=== PATIENT | female | born 1965 | race Caucasian/White ===

== ENCOUNTER 2018-11-05 14:08 | Emergency (ER) | payer OTHER ==
[2018-11-05] MEDS ORDERED: HYDROCODONE/APAP 5/325 MG TAB ONE ×2 (15:21→15:22)
[2018-11-05] MEDS ORDERED: ACETAMINOPHEN 325 MG TABLET ONE (15:21)
[2018-11-05 15:43] LABS: Absolute Lymphocytes (CBC) 0.5 K/uL (0.7-4.9); Absolute Monocytes 0.3 K/uL (0.1-1.3); Absolute Neutrophil 2.2 K/uL (1.8-8.0); Basophils % 0.4 % (0-1.3); Eosinophils % 0.7 % (0-4.4); Hematocrit 33.9 % (36.0-45.0); Lymphocytes % 18.2 % (15.3-44.8); MPV 7.5 fL (7.6-11.3); Monocytes % 8.6 % (3.3-12.3); RBC Red Blood Cell Count 3.58 M/uL (3.86-4.86)
[2018-11-05 15:56] LABS: Potassium 3.6 mmol/L (3.5-5.1)
--- NOTE | 2018-11-05 16:07 | ER ---
Nurse's Notes [facility] Name: Felicitas Caicedo Age: 53 yrs Sex: Female : 1965 Arrival Date: 11/05/2018 Time: 14:12 Bed 8 Private MD: Diagnosis: Fever, unspecified Presentation: 11/05 14:17 Presenting complaint: Right ear pain, sore throat, headache, fever, sinus congestion, hb sneezing, nonproductive cough x 2 days. TMAX 100.6. Transition of care: patient was not received from another setting of care. Onset of symptoms was November 04, 2018. Risk Assessment: Do you want to hurt yourself or someone else? Patient reports no desire to harm self or others. Care prior to arrival: None. 14:17 Method Of Arrival: Ambulatory hb 14:17 Acuity: REI 3 hb 14:45 Initial Sepsis Screen: Does the patient meet any 2 criteria? Temp <36.0*C (96.8*F)) or aa5 > 38.3*C (100.9*F). No. Patient's initial sepsis screen is negative. Does the patient have a suspected source of infection? Yes: Other: cough. Historical: - Allergies: 14:20 Fentanyl (Vomiting); hb - PMHx: 14:20 Multiple Myeloma; hb - Immunization history:: Adult Immunizations up to date. - Social history:: Smoking status: Patient/guardian denies using tobacco. - Ebola Screening: : No symptoms or risks identified at this time. Screenin:08 Abuse screen: Denies threats or abuse. Nutritional screening: No deficits noted. aa5 Tuberculosis screening: No symptoms or risk factors identified. Fall Risk None identified. Assessment: 14:45 General: Appears uncomfortable, Behavior is calm, cooperative. Pain: Complains of pain aa5 in right ear and forehead Pain does not radiate. Pain currently is 3 out of 10 on a pain scale. Quality of pain is described as aching, pressure, Pain began 1 day ago. Is continuous. Neuro: Level of Consciousness is awake, alert, obeys commands, Oriented to person, place, time, situation. Cardiovascular: Heart tones S1 S2 present Rhythm is regular. Respiratory: Reports cough that is non-productive, Airway is patent Respiratory effort is even, unlabored, Respiratory pattern is regular, symmetrical, Breath sounds are clear bilaterally. GI: No signs and/or symptoms were reported involving the gastrointestinal system. : No signs and/or symptoms were reported regarding the genitourinary system. EENT: Throat is reddened Reports nasal congestion pain in throat and right ear. Derm: Skin is dry, Skin is normal, Skin temperature is hot. Musculoskeletal: Range of motion: intact in all extremities. 15:36 Reassessment: Patient is alert, oriented x 3, equal unlabored respirations, skin aa5 warm/dry/pink. Pt given cup of water. Pt notified of wait time for lab and x-ray results. Pt's significant other at bedside. . 16:18 Reassessment: Patient is alert, oriented x 3, equal unlabored respirations, skin aa5 warm/dry/pink. 16:45 Reassessment: Patient is alert, oriented x 3, equal unlabored respirations, skin aa5 warm/dry/pink. Patient states feeling better. Vital Signs: 14:18 BP 116 / 63; Pulse 76; Resp 16; Temp 101.5(TE); Pulse Ox 98% on R/A; Pain 3/10; hb 16:18 BP 113 / 61; Pulse 60; Resp 18 S; Temp 99.3(O); Pulse Ox 97% on R/A; Pain 2/10; aa5 ED Course: 14:12 Patient arrived in ED. mr 14:18 Triage completed. hb 14:19 Arm band placed on. hb 14:26 Chelsea Bernard, RN is Primary Nurse. aa5 14:41 Mendy Terry FNP-C is PHCP. snw 14:41 Alcon Biggs MD is Attending Physician. snw 14:45 Patient has correct armband on for positive identification. Placed in gown. Bed in low aa5 position. Call light in reach. Side rails up X 1. Pulse ox on. NIBP on. 15:12 X-ray completed. Portable x-ray completed in exam room. Patient tolerated procedure tm4 well. 15:14 Chest Single View XRAY In Process Unspecified. EDMS 15:15 Flu and/or RSV swab sent to lab. Strep swab sent to lab. aa5 15:29 Initial lab(s) drawn, by me, sent to lab. First set of blood cultures drawn. jl7 15:33 Accessed Port-a-Cath. using accessed w/ # 20 Oscar needle, ,sterile technique, per [facility] protocol. Clean \T\ dry. Dressing intact. Good blood return. Flushes easily. 16:38 No provider procedures requiring assistance completed. Port-a-cath dc'd, flushed with aa5 heparin per protocol. Band-aid applied to site. Administered Medications: 15:12 Drug: Polk 5 mg-325 mg 2 tabs Route: PO; aa5 15:12 Drug: Tylenol 325 mg Route: PO; aa5 16:18 Drug: LevaQUIN 500 mg Route: PO; aa5 16:18 Drug: Tamiflu 75 mg Route: PO; aa5 Outcome: 16:07 Discharge ordered by . snw 16:45 Discharged to home ambulatory, with significant other. aa5 16:45 Condition: improved 16:45 Discharge instructions given to patient, Instructed on discharge instructions, follow up and referral plans. medication usage, Demonstrated understanding of instructions, follow-up care, medications, Prescriptions given X 1, Pt was instructed by HISTORIC PRESERVATIONIST to take Levaquin prescribed by her doctor for 7 days. 16:57 Patient left the ED. iw Signatures: Dispatcher [employer] EDMS Mendy Terry, DEBBIEC LEAD LEVEL DESIGNER-Csnashley Viviana Bernal Tracy tm4 Viv Curiel, SEAN ESTRADA iw Chelsea Bernard RN RN aa5 Fozia Cerna RN RN Shey Taylor RN RN jl7 Corrections: (The following items were deleted from the chart) 17:30 16:18 Pulse 60bpm; Resp 18bpm; Spontaneous; Pulse Ox 97% RA; Temp 99.3F Oral; aa5 aa5
--- NOTE | 2018-11-05 16:08 | EDPHYS ---
Physician Documentation [facility] Name: Felicitas Caicedo Age: 53 yrs Sex: Female : 1965 Arrival Date: 11/05/2018 Time: 14:12 Bed 8 Private MD: ED Physician Alcon Biggs HPI: 11/05 15:20 This 53 yrs old Female presents to ER via Ambulatory with complaints of snw Fever, Sore Throat, Ear Pain. 15:20 The patient reports fever, that was measured at 101.5 degrees Fahrenheit. Onset: The snw symptoms/episode began/occurred suddenly, last night. Modifying factors: there are no obvious modifying factors. Associated signs and symptoms: Pertinent positives: earache, headache, sore throat. Severity of symptoms: At their worst the symptoms were moderate. The patient has experienced a previous episode. last chemo (injection) 9 months ago, last WBC 1.7, platelets "hang out around 56". Historical: - Allergies: 14:20 Fentanyl (Vomiting); hb - PMHx: 14:20 Multiple Myeloma; hb - Immunization history:: Adult Immunizations up to date. - Social history:: Smoking status: Patient/guardian denies using tobacco. - Ebola Screening: : No symptoms or risks identified at this time. ROS: 15:19 Eyes: Negative for injury, pain, redness, and discharge. snw 15:19 Neck: Negative for injury, pain, and swelling, Cardiovascular: Negative for chest pain, palpitations, and edema, Respiratory: Negative for shortness of breath, cough, wheezing, and pleuritic chest pain, Abdomen/GI: Negative for abdominal pain, nausea, vomiting, diarrhea, and constipation, Back: Negative for injury and pain, : Negative for injury, bleeding, discharge, and swelling, MS/Extremity: Negative for injury and deformity, Skin: Negative for injury, rash, and discoloration, Neuro: Negative for headache, weakness, numbness, tingling, and seizure. 15:19 Constitutional: Positive for fever, malaise. 15:19 ENT: Positive for ear pain, sore throat. Exam: 15:14 Head/Face: Normocephalic, atraumatic. Eyes: Pupils equal round and reactive to light, snw extra-ocular motions intact. Lids and lashes normal. Conjunctiva and sclera are non-icteric and not injected. Cornea within normal limits. Periorbital areas with no swelling, redness, or edema. ENT: Nares patent. No nasal discharge, no septal abnormalities noted. Tympanic membranes are normal and external auditory canals are clear. Oropharynx with no redness, swelling, or masses, exudates, or evidence of obstruction, uvula midline. Mucous membranes moist. Neck: Trachea midline, no thyromegaly or masses palpated, and no cervical lymphadenopathy. Supple, full range of motion without nuchal rigidity, or vertebral point tenderness. No Meningismus. Chest/axilla: Normal chest wall appearance and motion. Nontender with no deformity. No lesions are appreciated. Cardiovascular: Regular rate and rhythm with a normal S1 and S2. No gallops, murmurs, or rubs. Normal PMI, no JVD. No pulse deficits. Respiratory: Lungs have equal breath sounds bilaterally, clear to auscultation and percussion. No rales, rhonchi or wheezes noted. No increased work of breathing, no retractions or nasal flaring. Abdomen/GI: Soft, non-tender, with normal bowel sounds. No distension or tympany. No guarding or rebound. No evidence of tenderness throughout. Back: No spinal tenderness. No costovertebral tenderness. Full range of motion. Skin: Warm, dry with normal turgor. Normal color with no rashes, no lesions, and no evidence of cellulitis. MS/ Extremity: Pulses equal, no cyanosis. Neurovascular intact. Full, normal range of motion. Neuro: Awake and alert, GCS 15, oriented to person, place, time, and situation. Cranial nerves II-XII grossly intact. Motor strength 5/5 in all extremities. Sensory grossly intact. Cerebellar exam normal. Normal gait. 15:14 Constitutional: The patient appears alert, awake, comfortable, frail. Vital Signs: 14:18 BP 116 / 63; Pulse 76; Resp 16; Temp 101.5(TE); Pulse Ox 98% on R/A; Pain 3/10; hb 16:18 BP 113 / 61; Pulse 60; Resp 18 S; Temp 99.3(O); Pulse Ox 97% on R/A; Pain 2/10; aa5 MDM: 14:45 Patient medically screened. snw 16:10 Data reviewed: vital signs, nurses notes. Data interpreted: Pulse oximetry: on room air snw is 98 %. Interpretation: acceptable. Counseling: I had a detailed discussion with the patient and/or guardian regarding: the historical points, exam findings, and any diagnostic results supporting the discharge/admit diagnosis, lab results, radiology results, the need for outpatient follow up, to return to the emergency department if symptoms worsen or persist or if there are any questions or concerns that arise at home. Special discussion: Based on the history and exam findings, there is no indication for further emergent testing or inpatient evaluation. I discussed with the patient/guardian the need to see the primary care provider for further evaluation of the symptoms. 16:12 Response to treatment: the patient's symptoms have markedly improved after treatment, snw the patient's condition has returned to base line, and as a result, I will discharge patient. 11/05 14:41 Order name: Flu; Complete Time: 15:56 snw 11/05 14:41 Order name: Strep; Complete Time: 15:46 snw 11/05 15:05 Order name: Blood Culture* snw 11/05 15:05 Order name: CBC with Diff snw 11/05 15:05 Order name: Chem 7; Complete Time: 16:36 snw 11/05 15:39 Order name: Throat Culture EDMS 11/05 15:05 Order name: Chest Single View XRAY snw 11/05 15:58 Order name: CBC Smear Scan EDMS 11/05 16:12 Order name: Add On-Lab snw 11/05 16:17 Order name: Liver (Hepatic) Function; Complete Time: 16:36 EDMS Administered Medications: 15:12 Drug: Wendel 5 mg-325 mg 2 tabs Route: PO; aa5 15:12 Drug: Tylenol 325 mg Route: PO; aa5 16:18 Drug: LevaQUIN 500 mg Route: PO; aa5 16:18 Drug: Tamiflu 75 mg Route: PO; aa5 Disposition: 18:47 Co-signature as Attending Physician, Alcon Biggs MD Available for consultation at ps1 all times . Disposition: 11/05/18 16:07 Discharged to Home. Impression: Fever, unspecified. - Condition is Stable. - Discharge Instructions: Fever, Adult. - Prescriptions for Tamiflu 75 mg Oral Capsule - take 1 tablet by ORAL route every 12 hours for 5 days; 10 tablet. - Medication Reconciliation Form, Thank You Letter, Antibiotic Education, Prescription Opioid Use form. - Follow up: Private Physician; When: 2 - 3 days; Reason: Recheck today's complaints, Continuance of care, Re-evaluation by your physician. Follow up: Emergency Department; When: As needed; Reason: Worsening of condition. - Notes: Please take Levaquin orally x 7 days Signatures: Dispatcher [employer] EDMS Mendy Terry, CHEMICAL PROCESSING LABORER-C CHEMICAL PROCESSING LABORER-Csnw Viv Curiel, RN RN iw Chelsea Bernard RN RN aa5 Fozia Cerna RN RN hb Alcon Biggs MD MD ps1 Corrections: (The following items were deleted from the chart) 16:57 16:07 11/05/2018 16:07 Discharged to Home. Impression: Fever, unspecified. Condition is iw Stable. Forms are Medication Reconciliation Form, Thank You Letter, Antibiotic Education, Prescription Opioid Use. Follow up: Private Physician; When: 2 - 3 days; Reason: Recheck today's complaints, Continuance of care, Re-evaluation by your physician. Follow up: Emergency Department; When: As needed; Reason: Worsening of condition. snw
[2018-11-05] MEDS ORDERED: OSELTAMIVIR 75 MG CAP ONE (16:23)
[2018-11-05] MEDS ORDERED: levoFLOXacin 500 MG TAB ONE (16:24)
[2018-11-05 16:28] LABS: Albumin 3.6 g/dL (3.4-5.0); Bilirubin Direct 0.1 mg/dL (0-0.2); Bilirubin Total 0.4 mg/dL (0.2-1.0); Protein, Total 6.1 g/dL (6.4-8.2)
[2018-11-05] MEDS ORDERED: HEPARIN 500 UNIT/5 ML SYR IV ONE (16:54)
[2018-11-05 16:59] LABS: Urine White Blood Cell Casts OK
[2018-11-05 17:00] LABS: Blood Morphology Comment NOT SEEN (NOT SEEN); Platelet Estimate DECR
[2018-11-05 17:03] VITALS: BP 116/63
[2018-11-05 17:05] VITALS: TEMP 99.3; O2SAT 97
--- NOTE | 2018-11-05 17:19 | RAD REPORT ---
EXAM DESCRIPTION: Rosemary Single View11/05/2018 3:15 pm CLINICAL HISTORY: Fever COMPARISON: 2013 FINDINGS: The lungs appear clear of acute infiltrate. The heart is mildly enlarged. A central venou s catheter has its tip in the superior vena cava IMPRESSION: No acute abnormalities displayed
== END 2018-11-05 16:57 | disposition home or self-care (01) ==
LOC: ER 14:08
DX: R50.9 Fever, unspecified (principal); Z85.79 Personal history of other malignant neoplasms of lymphoid, hematopoietic and related tissues
CPT/HCPCS: 36415; 71045; 80048; 80076; 85025; 87040; 87070; 87081; 87804; 99284; J1642

== ENCOUNTER 2018-12-19 15:39 | Emergency (ER) | payer OTHER ==
[2018-12-19 17:04] LABS: Absolute Lymphocytes (CBC) 0.5 K/uL (0.7-4.9); Absolute Monocytes 0.2 K/uL (0.1-1.3); Absolute Neutrophil 0.6 K/uL (1.8-8.0); Basophils % 0.8 % (0-1.3); Eosinophils % 1.2 % (0-4.4); Hematocrit 36.4 % (36.0-45.0); Lymphocytes % 39.9 % (15.3-44.8); MPV 7.8 fL (7.6-11.3); Monocytes % 13.1 % (3.3-12.3); RBC Red Blood Cell Count 3.81 M/uL (3.86-4.86)
[2018-12-19] MEDS ORDERED: NA CHLORIDE 0.9% 500 ML ONE (17:09)
[2018-12-19] MEDS ORDERED: LEVALBUTEROL 1.25 MG/3 ML NEB ONE (17:09)
[2018-12-19 17:16] LABS: Potassium 3.5 mmol/L (3.5-5.1)
--- NOTE | 2018-12-19 17:31 | RAD REPORT ---
EXAM DESCRIPTION: Rosemary Khan (2 Views)12/19/2018 5:23 pm CLINICAL HISTORY: Cough COMPARISON: 2014 FINDINGS: The lungs appear clear of acute infiltrate. The heart is normal size. Mild chronic compre ssion deformity involves a mid to lower thoracic vertebral body Central venous catheter remains in place IMPRESSION: No acute abnormalities displayed
--- NOTE | 2018-12-19 17:47 | ER ---
Nurse's Notes [facility] Name: Felicitas Caicedo Age: 53 yrs Sex: Female : 1965 Arrival Date: 12/19/2018 Time: 15:43 Bed 7 Private MD: Out, [facility] Diagnosis: Bronchitis, not specified as acute or chronic;Neutropenia, unspecified Presentation: 12/19 15:58 Presenting complaint: Patient states: Shortness of breath, and productive cough with hb wheezing and shortness of breath with chest pressure. Transition of care: patient was not received from another setting of care. Onset of symptoms was December 19, 2018. Risk Assessment: Do you want to hurt yourself or someone else? Patient reports no desire to harm self or others. Initial Sepsis Screen: Does the patient meet any 2 criteria? No. Patient's initial sepsis screen is negative. Does the patient have a suspected source of infection? No. Patient's initial sepsis screen is negative. Care prior to arrival: None. 15:58 Method Of Arrival: Ambulatory 15:58 Acuity: REI 3 hb Triage Assessment: 16:18 General: Appears in no apparent distress. comfortable, slender, Behavior is bp cooperative, appropriate for age, anxious. Pain: Denies pain. EENT: No deficits noted. Neuro: Level of Consciousness is awake, alert, obeys commands, Oriented to person, place, time, situation, Appropriate for age. Cardiovascular: Rhythm is sinus rhythm. Respiratory: Reports shortness of breath cough that is non-productive, Airway is patent Respiratory effort is even, unlabored, Respiratory pattern is regular, symmetrical. GI: No signs and/or symptoms were reported involving the gastrointestinal system. : No signs and/or symptoms were reported regarding the genitourinary system. Derm: No deficits noted. Musculoskeletal: Circulation, motion, and sensation intact. Range of motion: intact in all extremities. 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 - Social history:: Smoking status: Patient/guardian denies using tobacco. - Ebola Screening: : Patient negative for fever greater than or equal to 101.5 degrees Fahrenheit, and additional compatible Ebola Virus Disease symptoms Patient denies exposure to infectious person Patient denies travel to an Ebola-affected area in the 21 days before illness onset No symptoms or risks identified at this time. - Family history:: not pertinent. - Hospitalizations: : No recent hospitalization is reported. Screenin:20 Abuse screen: Denies threats or abuse. Denies injuries from another. Nutritional bp screening: No deficits noted. Tuberculosis screening: No symptoms or risk factors identified. Fall Risk None identified. Assessment: 16:19 General: SEE TRIAGE NOTE. PT STATES CHRONIC NEUTROPENIA AND THROMBOCYTOPENIA AFTER bp CHEMO DRUG TRIALS. 17:57 Reassessment: PT D/C HOME AMBULATORY WITH FRIEND, DX WITH BRONCHITIS. bp Vital Signs: 16:00 BP 124 / 75; Pulse 74; Resp 17; Temp 99.0; Pulse Ox 96% on R/A; Weight 52.62 kg; Pain hb 7/10; 17:07 BP 124 / 77; Pulse 57; Resp 14; Pulse Ox 100% ; bp 17:56 BP 132 / 75; Pulse 67; Resp 14; Pulse Ox 100% ; bp ED Course: 15:43 Patient arrived in ED. sb2 15:43 Out, of Town is Private Physician. sb2 15:58 Arm band placed on. hb 16:00 Triage completed. hb 16:13 Sharath Gutierrez, RN is Primary Nurse. bp 16:15 Mike Sam MD is Attending Physician. rn 16:20 Patient has correct armband on for positive identification. Bed in low position. Call bp light in reach. Side rails up X2. Adult w/ patient. 16:45 Accessed Port-a-Cath. using accessed w/ #19 Oscar needle, ,sterile technique, per hospital protocol. Clean \T\ dry. Dressing intact. Good blood return. Flushes easily. 16:49 Radiology exam delayed due to nurse drawing labs. ls3 17:21 XRAY Chest Pa And Lat (2 Views) In Process Unspecified. EDMS 17:57 No provider procedures requiring assistance completed. IV discontinued, intact, bp bleeding controlled, No redness/swelling at site. Pressure dressing applied. Administered Medications: 16:45 Drug: NS 0.9% 500 ml Route: IV; Rate: bolus; Site: Port-a-cath; bp 17:56 Follow up: IV Status: Completed infusion; IV Intake: 500ml bp 16:45 Drug: Xopenex 1.25 mg Route: Inhalation; bp Intake: 17:56 IV: 500ml; Total: 500ml. bp Outcome: 17:46 Discharge ordered by . rn 17:58 Discharged to home ambulatory, with family. bp 17:58 Condition: stable 17:58 Discharge instructions given to patient, Instructed on discharge instructions, follow up and referral plans. medication usage, Demonstrated understanding of instructions, follow-up care, medications, Prescriptions given X 1. 17:58 Patient left the ED. bp Signatures: Dispatcher [employer] EDMS Mike Sam MD MD rn Baxter, Heather, RN RN Sharath Davis RN RN bp Taryn Blanc sb2 Emily Banks ls3
--- NOTE | 2018-12-19 17:48 | EDPHYS ---
Physician Documentation [facility] Name: Felicitas Caicedo Age: 53 yrs Sex: Female : 1965 Arrival Date: 12/19/2018 Time: 15:43 Bed 7 Private MD: Out, of [facility], [facility] ED Physician Mike Sam HPI: 12/19 16:29 This 53 yrs old Female presents to ER via Ambulatory with complaints of Poss rn Pneumonia. 16:29 The patient or guardian reports cough. Onset: The symptoms/episode began/occurred 4 rn day(s) ago. Severity of symptoms: At their worst the symptoms were moderate, in the emergency department the symptoms are unchanged. Modifying factors: The symptoms are alleviated by nothing, the symptoms are aggravated by nothing. The patient has experienced similar episodes in the past. REports 4 days of cough, non-productive, fever, feels like possible pneumonia, started taking levaquin 500mg, 4 days ago as has standing prescription.. 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 - Social history:: Smoking status: Patient/guardian denies using tobacco. - Ebola Screening: : Patient negative for fever greater than or equal to 101.5 degrees Fahrenheit, and additional compatible Ebola Virus Disease symptoms Patient denies exposure to infectious person Patient denies travel to an Ebola-affected area in the 21 days before illness onset No symptoms or risks identified at this time. - Family history:: not pertinent. - Hospitalizations: : No recent hospitalization is reported. ROS: 16:29 Constitutional: Negative for weight loss Eyes: Negative for injury, pain, redness, and steel burner, Neck: Negative for injury, pain, and swelling, Cardiovascular: Negative for chest pain, palpitations, and edema, Respiratory: Negative for pleuritic chest pain, + cough/sob Abdomen/GI: Negative for abdominal pain, nausea, vomiting, diarrhea, and constipation, MS/Extremity: Negative for injury and deformity, Skin: Negative for injury, rash, and discoloration, Neuro: Negative for headache, numbness, tingling, and seizure. Exam: 16:29 Constitutional: This is a well developed, well nourished patient who is awake, alert, rn and in no acute distress. Head/Face: Normocephalic, atraumatic. Eyes: Pupils equal round and reactive to light, extra-ocular motions intact. Lids and lashes normal. Conjunctiva and sclera are non-icteric and not injected. Cornea within normal limits. Periorbital areas with no swelling, redness, or edema. ENT: dry MM, no stridor Cardiovascular: Regular rate and rhythm, No JVD. No pulse deficits. Respiratory: Diminished breath sounds left lung base, speaking full sentences, no retractions Abdomen/GI: soft, non-tender Skin: Warm, dry MS/ Extremity: Pulses equal, no cyanosis. Neuro: Awake and alert, GCS 15, oriented to person, place, time, and situation. Cranial nerves II-XII grossly intact. Motor strength 5/5 in all extremities. Sensory grossly intact. Cerebellar exam normal Vital Signs: 16:00 BP 124 / 75; Pulse 74; Resp 17; Temp 99.0; Pulse Ox 96% on R/A; Weight 52.62 kg; Pain hb 7/10; 17:07 BP 124 / 77; Pulse 57; Resp 14; Pulse Ox 100% ; bp 17:56 BP 132 / 75; Pulse 67; Resp 14; Pulse Ox 100% ; bp MDM: 16:15 Patient medically screened. rn 17:45 Differential Diagnosis: Bronchitis Influenza Upper Respiratory Infection Sinusitis rn Viral Syndrome Pneumonia. Data reviewed: vital signs, nurses notes, lab test result(s), radiologic studies, plain films, and as a result, I will discharge patient. Counseling: I had a detailed discussion with the patient and/or guardian regarding: the historical points, exam findings, and any diagnostic results supporting the discharge/admit diagnosis, lab results, radiology results, the need for outpatient follow up, to return to the emergency department if symptoms worsen or persist or if there are any questions or concerns that arise at home. Response to treatment: the patient's symptoms have mildly improved after treatment, and as a result, I will discharge patient. Special discussion: I discussed with the patient/guardian in detail that at this point there is no indication for admission to the hospital. It is understood, however, that if the symptoms persist or worsen the patient needs to return immediately for re-evaluation. ED course: Pt with negative cxr/flu/strep, neg procal, will dc home with continuation of levaquin per her oncologists recommendation, and return precautions given/understood. Improved with nebulizer, so will prescribe inhaler. . 12/19 16:24 Order name: CBC with Diff rn 12/19 16:24 Order name: Basic Metabolic Panel; Complete Time: 17:28 rn 12/19 16:24 Order name: Blood Culture Adult (2) rn 12/19 16:24 Order name: Procalcitonin; Complete Time: 17:35 rn 12/19 16:24 Order name: Lactate; Complete Time: 17:28 rn 12/19 16:24 Order name: Flu; Complete Time: 17:28 rn 12/19 16:24 Order name: IV Start; Complete Time: 17:06 rn 12/19 16:24 Order name: XRAY Chest Pa And Lat (2 Views); Complete Time: 17:35 rn 12/19 16:24 Order name: Strep; Complete Time: 17:28 rn 12/19 17:17 Order name: Throat Culture EDMS Administered Medications: 16:45 Drug: NS 0.9% 500 ml Route: IV; Rate: bolus; Site: Port-a-cath; bp 17:56 Follow up: IV Status: Completed infusion; IV Intake: 500ml bp 16:45 Drug: Xopenex 1.25 mg Route: Inhalation; bp Disposition: 12/19/18 17:46 Discharged to Home. Impression: Bronchitis, not specified as acute or chronic, Neutropenia, unspecified. - Condition is Stable. - Discharge Instructions: Acute Bronchitis, Adult, Neutropenia. - Prescriptions for Albuterol Sulfate 90 mcg/actuation - inhale 1-2 puff by INHALATION route every 4-6 hours; 1 Inhaler. - Medication Reconciliation Form, Thank You Letter, Antibiotic Education, Prescription Opioid Use form. - Follow up: Private Physician; When: As needed; Reason: Recheck today's complaints, Re-evaluation by your physician. - Problem is new. - Symptoms have improved. Signatures: Dispatcher [employer] EDMS Mike Sam MD MD rn Baxter, Heather, RN RN hb Peltier, Brian, RN RN bp Corrections: (The following items were deleted from the chart) 17:58 17:46 12/19/2018 17:46 Discharged to Home. Impression: Bronchitis, not specified as bp acute or chronic; Neutropenia, unspecified. Condition is Stable. Forms are Medication Reconciliation Form, Thank You Letter, Antibiotic Education, Prescription Opioid Use. Follow up: Private Physician; When: As needed; Reason: Recheck today's complaints, Re-evaluation by your physician. Problem is new. Symptoms have improved. rn
[2018-12-19 19:07] LABS: Urine White Blood Cell Casts DIFF
[2018-12-19 19:08] LABS: Blood Morphology Comment NOT SEEN (NOT SEEN); Platelet Estimate DECR
[2018-12-19 19:51] VITALS: TEMP 99
[2018-12-19 19:52] VITALS: O2SAT 100
[2018-12-19 19:54] VITALS: BP 132/75
== END 2018-12-19 17:58 | disposition home or self-care (01) ==
LOC: ER 15:39
DX: J40 Bronchitis, not specified as acute or chronic (principal); D70.9 Neutropenia, unspecified
CPT/HCPCS: 36415; 71046; 80048; 83605; 84145; 85025; 87040; 87070; 87081; 87804; 96360; 99285